=== PATIENT | male | born 1970 | race African-American/Black ===

== ENCOUNTER 2022-07-21 12:01 | Emergency (ER) | payer MEDICAID ==
[~2022-07-21] VITALS: Ht 175.3 cm; Wt 82.0 kg
[~2022-07-21 12:01] MED LIST: BUPR-46 PO; BUPR100T4 PO; EMTR1TAB11 PO; GABA-532 PO; QUET100T PO; RITO100T PO
[2022-07-21 12:04] VITALS: BP 156/98
[2022-07-31] MEDS ORDERED: ALBU6.7H3 INH (14:05)
[2022-08-01] MEDS ORDERED: IPRA3AMP9 NEB (08:05)
[2022-08-01] MEDS ORDERED: FLUT1DIS3 INH (08:05)
[2022-08-01] MEDS ORDERED: P20 MT (08:05)
== END 2022-07-21 15:44 | disposition left against medical advice (07) ==
LOC: ER 12:01
DX: Z53.21 Procedure and treatment not carried out due to patient leaving prior to being seen by health care provider (principal); I49.9 Cardiac arrhythmia, unspecified
CPT/HCPCS: 93005

== ENCOUNTER 2022-07-21 16:01 | Emergency (ER) | payer MEDICAID ==
[~2022-07-21] VITALS: Ht 177.8 cm; Wt 91.0 kg
[2022-07-21 16:08] VITALS: BP 131/89
[2022-07-31] MEDS ORDERED: ALBU6.7H3 INH (14:05)
[2022-08-01] MEDS ORDERED: IPRA3AMP9 NEB (08:05)
[2022-08-01] MEDS ORDERED: P20 MT (08:05)
[2022-08-01] MEDS ORDERED: FLUT1DIS3 INH (08:05)
== END 2022-07-21 16:36 | disposition left against medical advice (07) ==
LOC: ER 16:04
DX: Z53.21 Procedure and treatment not carried out due to patient leaving prior to being seen by health care provider (principal)

== ENCOUNTER 2022-09-13 20:09 | Emergency (ER) | payer MEDICAID ==
[~2022-09-13] VITALS: Ht 175.3 cm; Wt 85.0 kg
[~2022-09-13 20:09] MED LIST changes: +ALBU6.7H3 INH; +FLUT1DIS3 INH; +IPRA3AMP9 NEB; +P20 MT
[2022-09-13 20:12] VITALS: BP 135/88
== END 2022-09-13 23:36 | disposition left against medical advice (07) ==
LOC: ER 20:14
DX: R05.9 Cough, unspecified (principal); Z53.21 Procedure and treatment not carried out due to patient leaving prior to being seen by health care provider
CPT/HCPCS: 99281

== ENCOUNTER 2023-01-01 00:20 | Emergency (ER) | payer MEDICAID ==
[~2023-01-01] VITALS: Ht 170.2 cm; Wt 85.0 kg
[2023-01-01 00:27] VITALS: O2SAT 97
[2023-01-01 01:04] LABS: BASOPHILS % 0.6 % (0.0-2.0); EOSINOPHILS % 1.1 % (0.0-5.0); HEMATOCRIT. 37.7 % (42.0-52.0); HEMOGLOBIN. 12.5 g/dL (14.0-18.0); LYMPHOCYTES % 9.4 % (20.0-50.0); MEAN CORPUSCULAR HEMOGLOBIN 28.5 pg (28.0-32.0); MEAN CORPUSCULAR VOLUME 86.1 fL (80.0-94.0); MEAN PLATELET VOLUME 7.4 fl (7.4-10.4); MONOCYTES % 5.9 % (2.0-8.0); PLATELET 274 x1000/uL (130-400); RED BLOOD CELL COUNT 4.38 mill/uL (4.7-6.1)
[2023-01-01 01:13] LABS: CHLORIDE 107 mEq/L (98-107)
[2023-01-01] MEDS ORDERED: FAMOTIDINE 20MG/2ML VIAL IV ONE (02:00)
[2023-01-01] MEDS ORDERED: ONDANSETRON HCL 4MG/2ML INJ IV ONE (02:00)
[2023-01-01] MEDS ORDERED: SODIUM CHLORIDE 0.9% 250 ML IV ONE (02:00)
[2023-01-01] MEDS ORDERED: ONDANSETRON HCL 4MG/2ML INJ IV NR (04:45)
[2023-01-01] MEDS ORDERED: FAMOTIDINE 20MG/2ML VIAL IV NR (04:45)
[2023-01-01 06:24] VITALS: BP 110/61; PULSE 82; RESP 14; TEMP 97.9
== END 2023-01-01 06:30 | disposition home or self-care (01) ==
LOC: ER 00:20
DX: R07.89 Other chest pain (principal); J45.909 Unspecified asthma, uncomplicated; Z79.899 Other long term (current) drug therapy
CPT/HCPCS: 80053; 83880; 85025; 84484; 36415; 71045; 93005; 96361; 96374; 96375; 99285; J3490; J2405; J7050; Z7610 ×2

== ENCOUNTER 2024-06-21 18:20 | Emergency (ER) | payer MEDICAID ==
[~2024-06-21] VITALS: Ht 177.8 cm; Wt 77.0 kg
[~2024-06-21 18:20] MED LIST changes: +GABA-1180 PO; -GABA-532 PO; +[UNRECOGNIZED DRUG - CODE]
[2024-06-21] MEDS ORDERED: PREDNISONE 20MG TABLET PO STA (19:38)
[2024-06-21] MEDS: ALBUTEROL (0.083%) 2.5MG/3ML NEB HHN SCH (20:02)
[2024-06-21] MEDS: IPRATROPIUM BROMIDE (0.02%) 0.5MG/2.5ML NEB HHN STA (20:02)
[2024-06-21 20:08] VITALS: PULSE 90; RESP 18; O2SAT 95
[2024-06-21 20:22] LABS: BASOPHILS % 0.6 % (0.0-2.0); EOSINOPHILS % 1.2 % (0.0-5.0); HEMATOCRIT. 38.3 % (42.0-52.0); HEMOGLOBIN. 12.4 g/dL (14.0-18.0); LYMPHOCYTES % 17.7 % (20.0-50.0); MEAN CORPUSCULAR HEMOGLOBIN 27.7 pg (28.0-32.0); MEAN CORPUSCULAR HGB CONC 32.5 g/dL (31.0-37.0); MEAN CORPUSCULAR VOLUME 85.3 fL (80.0-94.0); MEAN PLATELET VOLUME 7.4 fl (7.4-10.4); MONOCYTES % 5.5 % (2.0-8.0); PLATELET 300 x1000/uL (130-400); RED BLOOD CELL COUNT 4.49 mill/uL (4.7-6.1); RED CELL DISTRIBUTION WIDTH 14.3 % (11.6-14.6); WHITE BLOOD COUNT 11.2 x1000/uL (4.5-11.0)
[2024-06-21 20:30] LABS: CHLORIDE 101 mEq/L (98-107); PROTHROMBIN TIME 11.2 sec (9.6-11.0); SODIUM 138 mEq/L (136-145)
[2024-06-21 20:31] LABS: CALCIUM 9.6 mg/dL (8.7-10.4); CARBON DIOXIDE 32 mEq/L (21-32)
[2024-06-21 20:36] LABS: CREATININE 1.4 mg/dL (0.6-1.3); GLUCOSE 167 mg/dL (70-105); UREA NITROGEN BLOOD 20 mg/dL (9-23)
[2024-06-21 20:37] LABS: TROPONIN I HIGH SENSITIVITY 5 ng/L (3.0-53)
[2024-06-21 20:44] LABS: POTASSIUM 2.8 mEq/L (3.5-5.1)
[2024-06-21 20:53] VITALS: BP 121/81; PULSE 86; RESP 17; TEMP 36.33624; O2SAT 96
[2024-06-21] MEDS: ALBUTEROL (0.5%) 2.5MG/0.5ML NEB HHN ONE (21:48)
[2024-06-21] MEDS ORDERED: FLUT1DIS3 INH (21:54)
[2024-06-21] MEDS ORDERED: P50 MT (21:56)
[2024-06-21] MEDS ORDERED: ALBU18HF2 IH (21:56)
[2024-06-21] MEDS: PREDNISONE 20MG TABLET PO NR (22:19)
[2024-06-21] MEDS: POTASSIUM CHLORIDE 20MEQ TABLET SR PO ONE (22:20)
== END 2024-06-21 22:30 | disposition home or self-care (01) ==
LOC: ER 18:20
DX: J44.1 Chronic obstructive pulmonary disease with (acute) exacerbation (principal); E78.00 Pure hypercholesterolemia, unspecified; Z98.890 Other specified postprocedural states; Z79.899 Other long term (current) drug therapy
CPT/HCPCS: 80048; 83880; 85025; 85610; 84484; 36415; 71045; 93005; 94644; 99291; J7512; Z7610; 94640

== ENCOUNTER 2024-07-25 17:21 | Emergency (ER) | payer MEDICAID ==
[~2024-07-25] VITALS: Ht 172.7 cm; Wt 95.0 kg
[~2024-07-25 17:21] MED LIST changes: +ALBU18HF2 IH; +P50 MT
[2024-07-25 18:05] VITALS: PULSE 120; RESP 24; O2SAT 89
[2024-07-25] MEDS: ALBUTEROL (0.083%) 2.5MG/3ML NEB HHN STA (18:05)
[2024-07-25] MEDS: IPRATROPIUM BROMIDE (0.02%) 0.5MG/2.5ML NEB HHN STA (18:05)
[2024-07-25 19:09] LABS: BASOPHILS % 0.3 % (0.0-2.0); EOSINOPHILS % 5.6 % (0.0-5.0); HEMATOCRIT. 33.8 % (42.0-52.0); HEMOGLOBIN. 11.1 g/dL (14.0-18.0); LYMPHOCYTES % 40.2 % (20.0-50.0); MEAN CORPUSCULAR HEMOGLOBIN 27.8 pg (28.0-32.0); MEAN CORPUSCULAR HGB CONC 32.7 g/dL (31.0-37.0); MEAN CORPUSCULAR VOLUME 85.2 fL (80.0-94.0); MEAN PLATELET VOLUME 7.3 fl (7.4-10.4); MONOCYTES % 8.7 % (2.0-8.0); NEUTROPHILS % 45.2 % (40.0-76.0); PLATELET 343 x1000/uL (130-400); RED BLOOD CELL COUNT 3.97 mill/uL (4.7-6.1); RED CELL DISTRIBUTION WIDTH 14.3 % (11.6-14.6); WHITE BLOOD COUNT 10.4 x1000/uL (4.5-11.0)
[2024-07-25 19:12] LABS: CARBON DIOXIDE 30 mEq/L (21-32); CHLORIDE 105 mEq/L (98-107); POTASSIUM 2.9 mEq/L (3.5-5.1); SODIUM 143 mEq/L (136-145)
[2024-07-25 19:13] LABS: CALCIUM 9.7 mg/dL (8.7-10.4)
[2024-07-25 19:18] LABS: CREATININE 1.7 mg/dL (0.6-1.3); GLUCOSE 114 mg/dL (70-105); UREA NITROGEN BLOOD 22 mg/dL (9-23)
[2024-07-25 19:26] LABS: TROPONIN I HIGH SENSITIVITY < 4 ng/L (3.0-53)
[2024-07-25] MEDS: METHYLPREDNISOLONE SOD SUCC 125MG/2ML (ACT-O-VIAL) IV STA (19:33)
[2024-07-25] MEDS: MAGNESIUM 2 G PREMIX 50 ML IV ONE (19:33)
[2024-07-25] MEDS: POTASSIUM CHLORIDE 20MEQ TABLET SR PO ONE (19:34)
[2024-07-25] MEDS: METHYLPREDNISOLONE SOD SUCC 125MG/2ML (ACT-O-VIAL) ONE (19:34)
[2024-07-25] MEDS ORDERED: ALBU18HF2 IH (20:30)
[2024-07-25] MEDS ORDERED: P50 MT (20:30)
[2024-07-25] MEDS ORDERED: POTA-163 MT (20:31)
[2024-07-25 21:30] VITALS: BP 109/94; PULSE 102; RESP 16; TEMP 36.61404; O2SAT 93
== END 2024-07-25 21:49 | disposition home or self-care (01) ==
LOC: ER 17:21
DX: J44.1 Chronic obstructive pulmonary disease with (acute) exacerbation (principal); J45.901 Unspecified asthma with (acute) exacerbation; E78.00 Pure hypercholesterolemia, unspecified; Z79.899 Other long term (current) drug therapy
CPT/HCPCS: 80048; 85025; 84484; 36415; 71045; 94640; 96365; 96375; 99285; J3475; J2919; Z7610 ×3; 94070